=== PATIENT | male | born 1960 | race Caucasian/White ===

== ENCOUNTER 2017-03-19 11:35 | Emergency (ER) | payer BC ==
[2017-03-19] MEDS ORDERED: Ketorolac Tromethamine 30 MG/ML VIAL ONE (12:01)
[2017-03-19] MEDS ORDERED: Ondansetron HCl/PF 4 MG/2 ML Vial ONE (12:01)
[2017-03-19 12:08] LABS: #Basophils 0.1 thou/uL (0.0-0.2); #Eosinphils 0.3 thou/uL (0.0-0.7); #Lymphocytes 1.5 thou/uL (1.20-3.40); #Monocytes 0.6 thou/uL (0.11-0.59); #Neutrophils 4.5 thou/uL (1.40-6.50); %Basophils 1.4 % (0.0-1.0); %Eosinophils 3.9 % (0.0-10.0); %Monocytes 7.9 % (0.0-10.0); %Neutrophils 64.8 % (42.0-75.0); Hemoglobin 16.8 g/dL (14.0-18.0); Mean Corpuscular Hemoglobin 33.3 pg (27.0-31.0); Mean Corpuscular Volume 95.2 fl (80.0-94.0); Mean Platelet Volume 7.4 fL (7.4-10.4); Platelet Count 156 thou/uL (130-400); RBC Distribution Width 12.6 % (11.5-14.5); Red Blood Cell (RBC) Count 5.05 mill/uL (4.70-6.10)
[2017-03-19 12:26] LABS: ALT (SGPT) 24 U/L (0-55); AST (SGOT) 14 U/L (5-34); Albumin 4.2 g/dL (3.5-5.0); Alkaline Phosphatase 69 U/L (40-150); Anion Gap 11 mmol/L (10-20); BUN (Urea Nitrogen) 14 mg/dL (8.4-25.7); Bilirubin, Total 1.8 mg/dL (0.2-1.2); Calc. Creatinine Clearance 0 mL/min (70-130); Calcium 8.8 mg/dL (7.8-10.44); Carbon Dioxide 24 mmol/L (22-29); Chloride 109 mmol/L (98-107); Estimated GFR-MDRD 79; Globulin 2.5 g/dL (2.4-3.5); Glucose 133 mg/dL (70-105); Lipase 25 U/L (8-78); Protein, Total 6.7 g/dL (6.0-8.3); Sodium 140 mmol/L (136-145)
[2017-03-19 13:15] LABS: Bilirubin Negative (Negative); Blood, Urine Moderate (Negative); Clarity Slightly Cloudy (Clear); Glucose, Urine (Dipstick) Negative (Negative); Leukocyte Negative (Negative); Nitrite Negative (Negative); Protein, Urine (Dipstick) Negative (Neg-Trace); Urobilinogen 0.2 mg/dL (0.2-1.0)
[2017-03-19 13:22] LABS: Bacteria/HPF Rare-Few HPF (None Seen); RBC/HPF 21-50 HPF (0-3); Squamous Epithelial 0-3 HPF (0-3); WBC/HPF 0-3 HPF (0-3)
--- NOTE | 2017-03-19 22:18 | CT ---
CT ABDOMEN AND PELVIS WITHOUT CONTRAST: Date: 03-19-17 Technique: Spiral CT of the abdomen and pelvis was performed without oral or IV contrast in a renal stone protocol. Axial slices were acquired then coronal reconstructions were done. No prior scans we re available for comparison. FINDINGS: The lung bases are clear. The liver has several scattered low density areas throughout it, the large st measuring about 1.3 cm in size in the lower right lobe. Statistically, these are most likely smal l cysts. Ultrasound would be needed to confirm it. The spleen is normal in size. The pancreas and ad renal glands were unremarkable. No stones were seen in the gallbladder. The abdominal aorta is kiran l in caliber. Calculi are present in each kidney. There is a contour defect in the mid portion of the right kidney . I feel it is a little more likely that this is developmental than actual pathology, however, I wou ld not ignore it. Follow up ultrasound to ensure there is nothing here would be prudent. There is mi ld left hydronephrosis and hydroureter secondary to a large distal left ureteral calculus. It is jus t shy of the left UVJ and measures 9 x 5 mm. The bowel is nondistended. There is no sign of obstruction or inflammatory change around bowel. No f ree air or free fluid was seen. CT of the pelvis showed no pelvic masses, fluid collections, or inflammatory changes. The prostate i s mildly generous in size. An incidental finding is a fat filled left inguinal hernia. Additionally, there is a mildly prominent central bulge of the L5-S1 disc and some crowding of the thecal sac at the L4-5 level. IMPRESSION: 1. 9 x 5 mm distal left ureteral calculus near the UVJ causing mild left hydronephrosis. 2. Bilateral nonobstructing renal calculi. 3. Contour defect of the right kidney, probably benign, but a follow up ultrasound to be sure there is no mass or other pathology here is recommended. 4. Presumed small hepatic cysts. 5. Fat filled left inguinal hernia. POS: HOME
== END 2017-03-19 13:39 | disposition home or self-care (01) ==
LOC: BURERS 11:35
DX: N13.2 Hydronephrosis with renal and ureteral calculous obstruction (principal)
CPT/HCPCS: 74176; 80053; 81003; 81015; 83690; 85025; 87086; 96361; 96374; 96375; J1885; J2405